=== PATIENT | female | born 2000 | race Caucasian/White ===

== ENCOUNTER 2022-02-03 12:45 | Emergency (ER) | payer BC ==
[~2022-02-03] VITALS: Ht 167.6 cm; Wt 73.0 kg
[2022-02-03 12:57] VITALS: TEMP 98.4
[2022-02-03 13:49] VITALS: BP 112/90; PULSE 98
== END 2022-02-03 13:54 | disposition home or self-care (01) ==
LOC: COL.ER 12:45 → EDBD 12:47 → COL.ER 12:47
DX: T78.1XXA Other adverse food reactions, not elsewhere classified, initial encounter (principal)
CPT/HCPCS: J8540